=== PATIENT | female | born 1960 | race Caucasian/White ===

== ENCOUNTER 2016-07-06 01:47 | Emergency (ER) | payer OTHER ==
--- NOTE | 2016-07-06 01:57 | Emergency Department Record ---
History of Present Illness - General Chief Complaint: Fall Injury Stated Complaint: FALL Time Seen by Provider: 07/06/16 01:51 Source: Patient Mode of Arrival: EMS Limitations: No limitations - History of Present Illness Initial Comments: 56 yo female presents to ED with a CC of a fall from her wheel chair tonight. Patient reports history of TBI and has been told to be evaluated following any head injuries to be evaluated for possible new head injury following fall. Patient denies headache, neck pain, or extremity injury. MD Complaint: Fall Onset/Timin -: Minutes(s) Fall From: Wheelchair When Fall Occurred: Just prior to arrival Fall Witnessed: Yes, by living facility staff Place Fall Occurred: Home Loss of Consciousness: None Prolonged Down Time?: No Symptoms Prior to Fall: None Location: Head - [place] Coma Scale Eye Response: (4) Open spontaneously Motor Response: (6) Obeys commands Verbal Response: (5) Oriented Salome Total: 15 - Related Data Home Medications Medication Instructions Recorded Confirmed Last Taken Cetirizine HCl [Cetirizine HCl] 10 mg PO DAILY 07/06/16 07/06/16 Unknown Folic Acid [Folic Acid] 1 mg PO DAILY 07/06/16 07/06/16 Unknown Hydroxychloroquine Sulfate 200 mg PO DAILY 07/06/16 07/06/16 Unknown [Plaquenil] Hydroxyzine HCl [Hydroxyzine HCl] 25 mg PO TID PRN 07/06/16 07/06/16 Unknown Lamotrigine [Lamotrigine] 200 mg PO DAILY 07/06/16 07/06/16 Unknown Metaxalone [Metaxalone] 800 mg PO TID 07/06/16 07/06/16 Unknown Modafinil [Modafinil] 100 mg PO BID 07/06/16 07/06/16 Unknown Allergies Allergy/AdvReac Type Severity Reaction Status Date / Time morphine Allergy ITCHING Verified 02/16/16 23:59 Review of Systems Constitutional: Denies: Chills, Fever, Malaise Eyes: Denies: Eye discharge, Eye pain ENT: Denies: Congestion, Ear pain, Epistaxis Respiratory: Denies: Cough, Dyspnea Cardiovascular: Denies: Chest pain, Dyspnea on exertion Endocrine: Denies: Fatigue, Heat or cold intolerance Gastrointestinal: Denies: Abdominal pain, Nausea, Vomiting Genitourinary: Denies: Incontinence, Retention Musculoskeletal: Denies: Arthralgia, Back pain, Gout, Joint swelling Skin: Denies: Bruising, Change in color Neurological: Denies: Confusion, Headache Psychiatric: Denies: Anxiety Hematological/Lymphatic: Denies: Anemia, Blood Clots Past Medical History - SOCIAL HISTORY Smoking Status: Never smoker Drug Use: None - RESPIRATORY Hx Respiratory Disorders: No - CARDIOVASCULAR Hx Cardio Disorders: No - NEURO Hx Neuro Disorders: No - Hx Genitourinary Disorders: Yes Hx Bladder Problem: Yes Comment:: having sx on - ENDOCRINE Hx Endocrine Disorders: No - MUSCULOSKELETAL Hx Musculoskeletal Disorders: Yes Comment:: Left side paralysis - PSYCH Hx Psych Problems: No - HEMATOLOGY/ONCOLOGY Hx Hematology/Oncology Disorders: No Physical Exam - General General Appearance: Alert, Oriented x3, Cooperative, No acute distress Limitations: No limitations - Head Head exam: Atraumatic, Normocephalic, Normal inspection Head exam detail: negative: Abrasion, Contusion, Chinchilla's sign, General tenderness, Hematoma, Laceration - Eye Eye exam: Normal appearance. negative: Conjunctival injection, Periorbital swelling, Periorbital tenderness, Scleral icterus - ENT Ear exam: negative: Auricular hematoma, Auricular trauma Nasal Exam: negative: Active bleeding, Discharge, Dried blood Mouth exam: negative: Drooling, Laceration, Muffled voice, Tongue elevation - Neck Neck exam: Normal inspection. negative: Meningismus, Tenderness - Respiratory Respiratory exam: Normal lung sounds bilaterally. negative: Rales, Respiratory distress, Rhonchi, Stridor - Cardiovascular Cardiovascular Exam: Regular rate, Normal rhythm, Normal heart sounds - GI/Abdominal GI/Abdominal exam: Soft. negative: Rebound, Rigid, Tenderness - Rectal Rectal exam: Deferred - exam: Deferred - Extremities Extremities exam: Other (contractures to the LUE, LLE). negative: Calf tenderness, Pedal edema, Tenderness - Back Back exam: Denies: CVA tenderness (R), CVA tenderness (L) - Neurological Neurological exam: Alert, Oriented X3 - Psychiatric Psychiatric exam: Normal affect, Normal mood - Skin Skin exam: Normal color. negative: Abrasion Type of lesion: negative: abrasion Course - Reevaluation(s) Reevaluation #1: 07/06/16 02:44 CT Brain negative for an acute process Patient was updated on all results, and the patient appears stable for discharge at this time. Disposition Disposition: Discharge Clinical Impression: Fall from wheelchair Qualifiers: Encounter type: initial encounter Qualified Code(s): W05.0XXA - Fall from non- moving wheelchair, initial encounter Disposition: Home, Self-Care Condition: (2) Stable Instructions: Fall Prevention for Older Adults (ED) Additional Instructions: Return to ED if your symptoms worsen or if you have any concerns. Follow-up with your family doctor in 3-5 days as directed. Forms: Patient Portal Access Time of Disposition: 02:45
== END 2016-07-06 03:02 | disposition home or self-care (01) ==
LOC: ER 01:47
DX: S09.90XA Unspecified injury of head, initial encounter (principal); W05.0XXA Fall from non-moving wheelchair, initial encounter; Y92.122 Bedroom in nursing home as the place of occurrence of the external cause; Z87.820 Personal history of traumatic brain injury
CPT/HCPCS: 70450; 99283

== ENCOUNTER 2017-01-22 14:36 | Inpatient (IN) | payer MEDICARE, OTHER ==
--- NOTE | 2017-01-22 15:06 | Emergency Department Record ---
History of Present Illness - General Chief complaint: Lower Extremity Pain Stated complaint: SWELLING IN LEFT FOOT AND LEG Time Seen by Provider: 01/22/17 15:05 Source: Family Mode of Arrival: Wheelchair Limitations: No limitations - History of Present Illness Initial comments: The patient is here due to having a L foot infection with pain and swelling for a month since scraping the foot on her wheelchair. It has become progressively more painful and swollen since the onset. She did see her PCP a week ago in [place] and was sent to the ER where she staying overnight and received IV Abx' s. She then did see a corporate administrator in the ER who she states did nothing for her. The patient states she was discharged on Augmentin and has been taking it for the last week. There has been no fever, chills, trauma or falls reported. 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 MD Complaint: Extremity pain, Extremity swelling Onset/Timin -: Days(s) Location: Left, Foot, Lower Leg History of Same: No Radiation: None Severity scale (1-10): 10 Quality: Aching, Burning Consistency: Constant Improves with: Nothing Worsens with: Nothing Associated Symptoms: Denies other symptoms - Related Data Home Medications Medication Instructions Recorded Confirmed Last Taken Amoxicillin/Potassium Clav 01/22/17 01/22/17 08:00 [Augmentin 500Mg/125Mg] Aspirin [Aspir-Low] 81 mg PO DAILY 01/22/17 01/22/17 Unknown Baclofen [Lioresal Intrathecal] 01/22/17 Unknown Biotin 5 mg PO DAILY 01/22/17 01/22/17 Unknown Mirtazapine [Remeron] 15 mg PO DAILY 01/22/17 01/22/17 Unknown Allergies Allergy/AdvReac Type Severity Reaction Status Date / Time morphine Allergy ITCHING Verified 01/22/17 14:54 paper tape Allergy ITCHING Uncoded 01/22/17 14:54 Travel Screening - Travel/Exposure Within Last 30 Days Have you traveled within the last 30 days?: No - Travel/Exposure Within Last Year Have you traveled outside the [place] in the last year?: No - Additonal Travel Details Have you been exposed to anyone with a communicable illness?: No - Travel Symptoms Symptom Screening: None Review of Systems Constitutional: Denies: Chills, Fever, Malaise Eyes: Denies: Eye discharge ENT: Denies: Congestion, Throat pain Respiratory: Denies: Cough, Dyspnea Past Medical History - SOCIAL HISTORY Smoking Status: Never smoker Alcohol Use: None Drug Use: None - RESPIRATORY Hx Respiratory Disorders: No - CARDIOVASCULAR Hx Cardio Disorders: No - NEURO Hx Neuro Disorders: No - Hx Genitourinary Disorders: Yes Hx Bladder Problem: Yes - ENDOCRINE Hx Endocrine Disorders: No - MUSCULOSKELETAL Hx Musculoskeletal Disorders: Yes Comment:: Left side paralysis - PSYCH Hx Psych Problems: No - HEMATOLOGY/ONCOLOGY Hx Hematology/Oncology Disorders: No Family Medical History Any Significant Family History?: Yes Hx Alcohol Use: Father Physical Exam - General General Appearance: Alert, Cooperative, No acute distress - Head Head exam: Atraumatic, Normocephalic, Normal inspection - Eye Eye exam: Normal appearance, PERRL - Neck Neck exam: Normal inspection - Respiratory Respiratory exam: Normal lung sounds bilaterally. negative: Respiratory distress - Cardiovascular Cardiovascular Exam: Regular rate, Normal rhythm, Normal heart sounds - Extremities Extremities exam: Pedal edema, Tenderness. negative: Normal inspection (There is mild to moderate edema to the L foot and ankle with mild erythema and tenderness. There is a mild abrasion to the dorsal L foot between the 3rd and 4th toes.), Calf tenderness Course Vital Signs 01/22/17 14:46 Temperature 98.3 F Pulse Rate 97 H Respiratory 20 Rate Blood Pressure 155/78 Pulse Ox 95 - Reevaluation(s) Reevaluation #1: The patient is doing well and denies any new issues. I did explain to her that her lab tests are for the most part WNL's and her Doppler and plain xrays are WNL's. Due to the fact the L foot infection is about a month old and she has been taking Augmentin for a week I did recommend hospital admission for IV Abx' s. The patient agrees to the plan. 01/22/17 17:00 Reevaluation #2: I did also discuss the case with Jasmine HIDALGO) who is accepting patient's for Dr. De La Fuente and she does accept the patient for inpatient care. 01/22/17 17:13 Medical Decision Making - Data Complexity MDM Data: Labs Ordered and/or Reviewed, X-Ray Ordered and/or Reviewed - Lab Data Result diagrams: 01/22/17 15:41 01/22/17 15:41 - Radiology Data Radiology results: Report reviewed (L Leg Doppler: Neg L ankle and foot xrays : No acute traumatic bony changes.) Disposition Disposition: Admit Clinical Impression: Cellulitis Qualifiers: Site of cellulitis: unspecified site Qualified Code(s): L03.90 - Cellulitis, unspecified Disposition: Still a Patient at [facility] Decision to Admit: Admit from ER Decision to Admit Date: 01/22/17 Decision to Admit Time: 17:02 Accepting Physician: Leisa Time Discussed w/Accepting Physician: 17:02 Condition: (2) Stable Forms: Patient Portal Access Time of Disposition: 17:02 Quality - Quality Measures Quality Measures: N/A - Blood Pressure Screening View Details: Yes Does Patient Have Any of the Following: No Blood Pressure Classification: Hypertensive Reading Systolic Measurement: 155 Diastolic Measurement: 78 Screening for High Blood Pressure: < Pre-Hypertensive BP, F/U Documented > [ [id number]] Pre-Hypertensive Follow-up Interventions: Referral to alternative/primary care provider.
[2017-01-22 15:53] LABS: BASO % 0.1 % (0-6); EOS % 1.1 % (0-6); HEMATOCRIT 42.2 % (35.0-47.0); HEMOGLOBIN 13.1 gm/dl (11.6-16.0); LYMPH % 17.4 % (16-45); MEAN CELL VOLUME 97.7 fl (81-97); MEAN CORPUSCULAR HEMOGLOBIN 30.3 pg (27-33); MEAN PLATELET VOLUME 10.1 fl (7.4-10.4); MONO % 4.4 % (0-9); PLATELET COUNT 257 K/uL (130-400); RED BLOOD COUNT 4.32 M/uL (3.80-5.40); RED CELL DISTRIBUTION WIDTH 14.7 % (11.5-14.5); WHITE BLOOD COUNT W/O DIFF 10.8 K/uL (4.2-12.2)
[2017-01-22] MEDS ORDERED: CLINDAMYCIN 600MG/50ML PREMIX 600 MG/50 ML BAG IVPB ONE (16:01)
[2017-01-22 16:02] LABS: BLOOD UREA NITROGEN 10 mg/dL (6-20); CREATININE 0.6 mg/dL (0.5-0.9); EST GLOMERULAR FILTRATION RATE > 60 mL/min; TOTAL PROTEIN 8.7 g/dL (6.6-8.7)
[2017-01-22 16:05] LABS: GLUCOSE,RANDOM 115 mg/dL (74-109)
[2017-01-22 16:07] LABS: ALBUMIN 3.8 g/dL (4.0-5.0); ALKALINE PHOSPHATASE 88 U/L (35-104); ALT/SGPT 15 U/L (<33); AST/SGOT 20 U/L (10.0-35.0)
[2017-01-22 16:08] LABS: C-REACTIVE PROTEIN 2.52 mg/dL (<0.5)
[2017-01-22 16:14] LABS: BILIRUBIN,DIRECT < 0.2 mg/dL (0-0.3)
[2017-01-22] MEDS ORDERED: ACETAMINOPHEN 325 MG TAB PO ONE (16:30)
[2017-01-22] MEDS ORDERED: HYDROXYZINE PAMOATE 25 MG CAPSULE PO PRN (18:22)
[2017-01-22] MEDS ORDERED: ACETAMINOPHEN 325 MG TAB PO PRN (18:22)
[2017-01-22] MEDS ORDERED: CLINDAMYCIN 600MG/50ML PREMIX 600 MG/50 ML BAG IVPB SCH (18:22)
[2017-01-22] MEDS: HYDROCODONE/APAP 5/325MG TABLET PO PRN ×2 (18:34→22:24)
[2017-01-22] MEDS ORDERED: MODAFINIL 100 MG PO SCH (22:00)
[2017-01-22] MEDS: CLINDAMYCIN 600MG/50ML PREMIX 600 MG/50 ML BAG IVPB SCH (22:30)
[2017-01-22] MEDS: CYCLOBENZAPRINE 10MG TABLET PO SCH (23:14)
[2017-01-23] MEDS: CLINDAMYCIN 600MG/50ML PREMIX 600 MG/50 ML BAG IVPB SCH ×3 (06:09→21:05)
--- NOTE | 2017-01-23 08:51 | History & Physical ---
History of Present Illness - Date of Service Date of Service for History & Physical: 01/23/17 - History of Present Illness Admitting Diagnosis: 1. Left Foot and Leg Cellulitis History of Present Illness: 56yo female with CC of redness and swelling of the left foot. She has history of TBI with left sided paralysis. Patient has been having pain and swelling for a month since scraping the foot on her wheelchair. It has become progressively more painful and swollen since the onset. She did see her PCP a week ago in [place] and was sent to the ER where she staying overnight and received IV Abx's. She then did see a table hand in the ER who she states did nothing for her. The patient states she was discharged on Augmentin and has been taking it for the last week. There has been no fever, chills, trauma or falls reported. While in the ED, patient underwent left foot and ankle XR showing soft tissue sweling. Venous doppler negative for acute process. Her WBC count was within normal. CRP was elevated at 2.52. Due to failing augmentin as outpatient, she was started on IV clindamycin and admitted for cellulitis. 01/23/17- Patient states her foot feels about the same as yesterday. She denies worsening pain or swelling. She denies any fevers, chills, nausea. She denies previous history of the same. She denies history of MRSA. pcp: Dr. Dowd Travel Screening - Travel/Exposure Within Last 30 Days Have you traveled within the last 30 days?: No - Travel/Exposure Within Last Year Have you traveled outside the [place] in the last year?: No - Additonal Travel Details Have you been exposed to anyone with a communicable illness?: No - Travel Symptoms Symptom Screening: None Review of Systems Constitutional: Denies: Chills, Fever, Malaise Eyes: Denies: Eye discharge ENT: Denies: Congestion, Throat pain Respiratory: Denies: Cough, Dyspnea Past Medical History - SOCIAL HISTORY Smoking Status: Never smoker - RESPIRATORY Hx Respiratory Disorders: No - CARDIOVASCULAR Hx Cardio Disorders: No - NEURO Hx Neuro Disorders: No Comment:: traumatic brain injury - Hx Genitourinary Disorders: Yes Hx Bladder Problem: Yes - ENDOCRINE Hx Endocrine Disorders: No Hx Diabetes: No Hx Thyroid Disease: No - MUSCULOSKELETAL Hx Musculoskeletal Disorders: Yes Comment:: Left side paralysis - PSYCH Hx Psych Problems: No - HEMATOLOGY/ONCOLOGY Hx Hematology/Oncology Disorders: No Family Medical History Any Significant Family History?: Yes Hx Alcohol Use: Father H&P Meds/Allergies - Allergies Allergies: Allergies Allergy/AdvReac Type Severity Reaction Status Date / Time morphine Allergy ITCHING Verified 01/22/17 14:54 paper tape Allergy ITCHING Uncoded 01/22/17 14:54 - Home Medications Home Medications Medication Instructions Recorded Confirmed Last Taken Amoxicillin/Potassium Clav 01/22/17 01/22/17 08:00 [Augmentin 500Mg/125Mg] Aspirin [Aspir-Low] 81 mg PO DAILY 01/22/17 01/22/17 Unknown Baclofen [Lioresal Intrathecal] 01/22/17 Unknown Biotin 5 mg PO DAILY 01/22/17 01/22/17 Unknown Mirtazapine [Remeron] 15 mg PO DAILY 01/22/17 01/22/17 Unknown - Active Medications Active Medications: Current Medications Acetaminophen (Tylenol 325mg) 650 mg PO Q6H PRN PRN Reason: PAIN/TEMP Hydrocodone Bitart/Acetaminophen ([place] 5mg/325mg) 1 each PO Q4H PRN PRN Reason: Analgesia Last Admin: 01/22/17 22:24 Dose: 1 each Aspirin (Ecotrin (Ec)) 81 mg PO DAILY [facility] Cyclobenzaprine HCl (Flexeril) 10 mg PO TID [facility] Last Admin: 01/22/17 23:14 Dose: 10 mg Folic Acid () 1 mg PO DAILY [facility] Hydroxychloroquine Sulfate (Plaquenil) 200 mg PO DAILY [facility] Hydroxyzine Pamoate (Vistaril) 25 mg PO TID PRN PRN Reason: ITCHING Clindamycin Phosphate (Cleocin 600 On-I2f-Metxoh) 600 mg in 50 mls @ 100 mls/ hr IVPB Q8HR [facility] Last Infusion: 01/23/17 06:49 Dose: Infused Lamotrigine (Lamictal) 200 mg PO DAILY [facility] Loratadine (Claritin) 10 mg PO DAILY [facility] Mirtazapine (Remeron) 15 mg PO DAILY [facility] Non-Formulary Medication (Modafinil [Modafinil]) 100 mg PO BID [facility] Physical Exam - Vital Signs Vital Signs: Vital Signs - Last 24 Hrs Temp Pulse Pulse Resp BP BP Pulse Ox 01/23/17 08:44 98.5 F 70 18 118/58 93 L 01/22/17 22:45 97.5 F L 77 18 147/91 97 01/22/17 21:00 18 01/22/17 19:24 20 01/22/17 18:09 98.2 F 98 H 20 150/74 96 01/22/17 18:05 98.4 F 74 18 158/94 98 - General General Appearance: Alert, Oriented x3, Cooperative, No acute distress Limitations: No limitations - Head Head exam: Atraumatic, Normocephalic, Normal inspection - Eye Eye exam: Normal appearance, PERRL - Neck Neck exam: Normal inspection - Respiratory Respiratory exam: Normal lung sounds bilaterally. negative: Respiratory distress - Cardiovascular Cardiovascular Exam: Regular rate, Normal rhythm, Normal heart sounds - GI/Abdominal GI/Abdominal exam: Soft, Normal bowel sounds. negative: Tenderness - Extremities Extremities exam: Pedal edema, Tenderness. negative: Normal inspection (There is mild to moderate edema to the L foot and ankle with mild erythema and tenderness. There is a mild abrasion to the dorsal L foot between the 3rd and 4th toes.), Calf tenderness Results - Labs Result Diagrams: 01/24/17 06:00 01/23/17 09:23 VTE H&P Assessment - Risk for VTE Risk for VTE: Yes Risk Level: High Risk Assessment Date: 01/23/17 Risk Assessment Time: 10:00 VTE Orders Placed or Will Be Placed: Yes Plan - Inpatient Certification Inpatient Certification: Admit to inpatient care: Based on my medical assessment, after consideration of patient's risk factors (age, co-morbidities and patient presenting symptoms and acuity), I expect that this patient will remain in the hospital greater than or equal to two midnights and that the services needed warrant inpatient care because: Patient Risk Factors: [age, cellulitis, failed outpatient treatment, paralysis of the left side of body making it difficult for patient to self monitor] Estimated length of stay: [48-72H] The patient may reasonably be expected to be discharged or transferred to a hospital within 96 hours after admission to [facility]. Services needed: [IV antibiotics ] Post hospital care (if known): [] I certify that my determination is in accordance with my understanding of Medicare requirements for reasonable and necessary inpatient services. 01/24/17 07:57 - Detailed Diagnosis and Plan (1) Cellulitis Current Visit: Yes Status: Acute Qualifiers: Site of cellulitis: unspecified site Qualified Code(s): L03.90 - Cellulitis , unspecified Base Code: L03.90 - CELLULITIS, UNSPECIFIED Comment: 01/23/17- XR of left foot and ankle showed diffuse soft tissue swelling. Venous doppler negative for DVT. WBC count wnl and patient remains afebrile. CRP elevated at 2.5. -continue IV clindamycin 600mg q8H -vitals q8H -repeat labs qam (2) Full code status Current Visit: Yes Status: Acute Base Code: Z78.9 - OTHER SPECIFIED HEALTH STATUS Comment: 01/23/17- patient is full code (3) DVT prophylaxis Current Visit: Yes Status: Acute Base Code: [id number] - Comment: 01/23/17- lovenox 40mg sq daily
[2017-01-23 09:39] LABS: BASO % 0.8 % (0-6); EOS % 3.1 % (0-6); GRAN % 46.6 % (47-80); HEMATOCRIT 38.9 % (35.0-47.0); HEMOGLOBIN 12.1 gm/dl (11.6-16.0); LYMPH % 40.4 % (16-45); MEAN CELL VOLUME 99.5 fl (81-97); MEAN CORPUSCULAR HEMOGLOBIN 30.9 pg (27-33); MEAN CORPUSCULAR HGB CONC 31.1 g/dl (32-36); MEAN PLATELET VOLUME 10.1 fl (7.4-10.4); MONO % 9.1 % (0-9); PLATELET COUNT 225 K/uL (130-400); RED BLOOD COUNT 3.91 M/uL (3.80-5.40); RED CELL DISTRIBUTION WIDTH 14.9 % (11.5-14.5); WHITE BLOOD COUNT W/O DIFF 6.1 K/uL (4.2-12.2)
[2017-01-23 09:49] LABS: BLOOD UREA NITROGEN 10 mg/dL (6-20); CREATININE 0.7 mg/dL (0.5-0.9); EST GLOMERULAR FILTRATION RATE > 60 mL/min
[2017-01-23 09:52] LABS: GLUCOSE,RANDOM 95 mg/dL (74-109)
[2017-01-23] MEDS: MIRTAZAPINE 15 MG TABLET PO SCH (10:00)
[2017-01-23] MEDS: ASPIRIN 81 MG TABEC PO SCH (10:00)
[2017-01-23] MEDS: LAMOTRIGINE 100 MG TABLET PO SCH (10:00)
[2017-01-23] MEDS: CYCLOBENZAPRINE 10MG TABLET PO SCH ×3 (10:00→21:05)
[2017-01-23] MEDS: LORATADINE 10 MG TABLET PO SCH (10:00)
[2017-01-23] MEDS: HYDROXYCHLOROQUINE SULFATE 200 MG TABLET PO SCH (10:00)
[2017-01-23] MEDS: FOLIC ACID 1 MG TABLET PO SCH (10:00)
--- NOTE | 2017-01-23 10:58 | RADIOLOGY REPORT ---
EXAM: ANKLE LEFT 3 VIEWS HISTORY: PAIN AND SWELLING LEFT ANKLE. TECHNIQUE: Three views left ankle. COMPARISON: Left ankle series 09/02/09. FINDINGS: Some diffuse soft tissue swelling is again seen about the left ankle , somewhat similar to that noted back on 09/02/09. No definite acute fracture or dislocation of the ankle evident. The bones diffusely appear somewhat osteopenic raising the possibility of osteoporosis and clinical correlation is suggested. IMPRESSION: SOME DIFFUSE SOFT TISSUE SWELLING. NO FRACTURE IDENTIFIED. SOME OSTEOPENIA DOES APPEAR TO BE PRESENT. JOB NUMBER: [id number] [facility]
--- NOTE | 2017-01-23 11:03 | RADIOLOGY REPORT ---
EXAM: FOOT, LEFT 3 VIEWS HISTORY: PAIN AND SWELLING LEFT FOOT. TECHNIQUE: Three views left foot. COMPARISON: Left foot series 05/03/09. FINDINGS: Post-op changes again seen involving the IP joint of the great toe as before with an orthopedic screw fusing the IP joint. Bones diffusely appear somewhat osteopenic suggesting osteoporosis. There may be an old pin tract in the distal shaft of the first metatarsal and clinical correlation is suggested. Diffuse soft tissue swelling is seen involving the foot. No definite fracture or dislocation of the left foot identified. IMPRESSION: 1. DIFFUSE SOFT TISSUE SWELLING INVOLVING THE LEFT FOOT. 2. POST-OP CHANGES AT THE IP JOINT OF THE GREAT TOE AND PROBABLY AN OLD PIN TRACT IN THE DISTAL SHAFT OF THE FIRST METATARSAL. 3. NO DEFINITE ACUTE FRACTURE OF THE LEFT FOOT IDENTIFIED. JOB [facility]BER: [id number] [facility]
--- NOTE | 2017-01-23 11:09 | US VENOUS DOPPLER REPORT ---
EXAM: ULTRASOUND VENOUS DOPPLER LOWER EXT LT HISTORY: PAIN AND SWELLING LEFT FOOT AND ANKLE. POSSIBLE DVT. TECHNIQUE: An emergency venous Doppler ultrasound of the left lower extremity was performed with the venous anatomy evaluated from the inguinal region down through the thigh and calf to the ankle. Color-flow and spectral analysis was utilized throughout, and were supplemented by compression and flow augmentation maneuvers in the thigh and popliteal region. COMPARISON: No prior venous Doppler ultrasound with which to compare. FINDINGS: The venous Doppler ultrasound of the left lower extremity is negative. No venous thrombus identified throughout the visualized venous anatomy of the left lower extremity. Compressibility and flow augmentation evident in the venous anatomy of the thigh and popliteal region as well. IMPRESSION: NEGATIVE VENOUS DOPPLER ULTRASOUND OF THE LEFT LOWER EXTREMITY WITH NO DVT EVIDENT. JOB NUMBER: [id number] [facility]
[2017-01-23] MEDS: HYDROCODONE/APAP 5/325MG TABLET PO PRN ×2 (13:22→21:05)
[2017-01-23] MEDS ORDERED: ACETAMINOPHEN 500 MG TABLET PO PRN ×2 (13:53→13:54)
[2017-01-24] MEDS: HYDROCODONE/APAP 5/325MG TABLET PO PRN ×3 (01:07→22:02)
[2017-01-24] MEDS: CLINDAMYCIN 600MG/50ML PREMIX 600 MG/50 ML BAG IVPB SCH ×3 (06:16→22:02)
[2017-01-24 06:25] LABS: BASO % 0.5 % (0-6); EOS % 2.6 % (0-6); GRAN % 57.1 % (47-80); HEMATOCRIT 39.2 % (35.0-47.0); HEMOGLOBIN 11.8 gm/dl (11.6-16.0); LYMPH % 31.9 % (16-45); MEAN CELL VOLUME 98.7 fl (81-97); MEAN CORPUSCULAR HEMOGLOBIN 29.7 pg (27-33); MEAN CORPUSCULAR HGB CONC 30.1 g/dl (32-36); MEAN PLATELET VOLUME 9.9 fl (7.4-10.4); MONO % 7.9 % (0-9); PLATELET COUNT 268 K/uL (130-400); RED BLOOD COUNT 3.97 M/uL (3.80-5.40); RED CELL DISTRIBUTION WIDTH 14.9 % (11.5-14.5); WHITE BLOOD COUNT W/O DIFF 7.6 K/uL (4.2-12.2)
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
[2017-01-24] MEDS: LAMOTRIGINE 100 MG TABLET PO SCH (10:55)
[2017-01-24] MEDS: LORATADINE 10 MG TABLET PO SCH (10:58)
[2017-01-24] MEDS: ASPIRIN 81 MG TABEC PO SCH (10:58)
[2017-01-24] MEDS: CYCLOBENZAPRINE 10MG TABLET PO SCH ×3 (10:59→22:02)
[2017-01-24] MEDS: HYDROXYCHLOROQUINE SULFATE 200 MG TABLET PO SCH (10:59)
[2017-01-24] MEDS: MIRTAZAPINE 15 MG TABLET PO SCH (10:59)
[2017-01-24] MEDS: FOLIC ACID 1 MG TABLET PO SCH (10:59)
[2017-01-24] MEDS: ENOXAPARIN 40 MG/0.4 ML SYR SQ SCH (15:38)
--- NOTE | 2017-01-24 20:30 | Physician Progress Note ---
Subjective - Date Date of Physician Progress Note: 01/24/17 - Subjective Subjective Comment: 01/24/17- Patient states her foot feels a little better than yesterday. she says she can't really see her foot so can't say if she thinks the redness is improving. She has only taken one dose of pain medication because otherwise her pain has been controlled. she denies fevers, chills. she currently lives at home with [facility] home care. She says one of her caregivers brought her to the ED on Wednesday. Objective - Vital Signs Vital Signs: Vital Signs - Last 24 Hrs Temp Pulse Resp BP Pulse Ox 01/24/17 17:52 98.0 F 76 18 160/81 97 01/24/17 10:00 97.7 F 68 18 141/72 92 L 01/23/17 21:00 18 - General General Appearance: Alert, Oriented x3, Cooperative, No acute distress Limitations: No limitations - Head Head exam: Atraumatic, Normocephalic, Normal inspection - Eye Eye exam: Normal appearance, PERRL - Neck Neck exam: Normal inspection - Respiratory Respiratory exam: Normal lung sounds bilaterally. negative: Respiratory distress - Cardiovascular Cardiovascular Exam: Regular rate, Normal rhythm, Normal heart sounds - GI/Abdominal GI/Abdominal exam: Soft, Normal bowel sounds. negative: Tenderness - Extremities Extremities exam: Pedal edema, Tenderness. negative: Normal inspection (There is mild to moderate edema to the L foot and ankle with mild erythema and tenderness. There is a mild abrasion to the dorsal L foot between the 3rd and 4th toes.), Calf tenderness - Neurological Neurological exam: Oriented X3 - Psychiatric Psychiatric exam: Normal affect, Normal mood Assessment and Plan - Assessment and Plan (1) Cellulitis Current Visit: Yes Status: Acute Qualifiers: Site of cellulitis: unspecified site Qualified Code(s): L03.90 - Cellulitis , unspecified Base Code: L03.90 - CELLULITIS, UNSPECIFIED Comment: 01/24/17- XR of left foot and ankle showed diffuse soft tissue swelling. Venous doppler negative for DVT. WBC count wnl and patient remains afebrile. CRP trending down from 2.5 to 1.66 today. -continue IV clindamycin 600mg q8H -vitals q8H -repeat labs qam -will likely discharge tomorrow. I did call her home care agency, [facility], today to discuss that she will need a ride home tomorrow so they are aware. (2) Full code status Current Visit: Yes Status: Acute Base Code: Z78.9 - OTHER SPECIFIED HEALTH STATUS Comment: 01/24/17- patient is full code (3) DVT prophylaxis Current Visit: Yes Status: Acute Base Code: [id number] - Comment: 01/24/17- lovenox 40mg sq daily Results - Labs Result Diagrams: 01/24/17 06:00 01/23/17 09:23 Labs Last 24 Hours: Laboratory Results - last 24 hr 01/24/17 01/24/17 06:00 06:00 WBC 7.6 RBC 3.97 Hgb 11.8 Hct 39.2 MCV 98.7 H MCH 29.7 MCHC 30.1 L RDW 14.9 H Plt Count 268 MPV 9.9 Gran % 57.1 Lymphocytes % 31.9 Monocytes % 7.9 Eosinophils % 2.6 Basophils % 0.5 C-Reactive Protein 1.66 H DVT/PE Assessment - Risk for VTE Risk for VTE: No Risk Level: High Risk Assessment Date: 01/23/17 Risk Assessment Time: 10:00 VTE Orders Placed or Will Be Placed: Yes - Active Medicaitons Current Medications: Current Medications Acetaminophen (Tylenol 500mg Tab) 500 mg PO Q6H PRN PRN Reason: Pain - Mild (1-4) Acetaminophen (Tylenol 500mg Tab) 1,000 mg PO Q6H PRN PRN Reason: Pain - Moderate (5-7) Hydrocodone Bitart/Acetaminophen (Phelps 5mg/325mg) 1 each PO Q4H PRN PRN Reason: Analgesia Last Admin: 01/24/17 15:39 Dose: 1 each Aspirin (Ecotrin (Ec)) 81 mg PO DAILY [facility] Last Admin: 01/24/17 10:58 Dose: 81 mg Cyclobenzaprine HCl (Flexeril) 10 mg PO TID [facility] Last Admin: 01/24/17 15:39 Dose: 10 mg Enoxaparin Sodium (Lovenox) 40 mg SQ DAILY [facility] Last Admin: 01/24/17 15:38 Dose: 40 mg Folic Acid () 1 mg PO DAILY [facility] Last Admin: 01/24/17 10:59 Dose: 1 mg Hydroxychloroquine Sulfate (Plaquenil) 200 mg PO DAILY [facility] Last Admin: 01/24/17 10:59 Dose: 200 mg Hydroxyzine Pamoate (Vistaril) 25 mg PO TID PRN PRN Reason: ITCHING Clindamycin Phosphate (Cleocin 600 [id number]) 600 mg in 50 mls @ 100 mls/ hr IVPB Q8HR [facility] Last Infusion: 01/24/17 19:49 Dose: Infused Lamotrigine (Lamictal) 200 mg PO DAILY [facility] Last Admin: 01/24/17 10:55 Dose: 200 mg Loratadine (Claritin) 10 mg PO DAILY [facility] Last Admin: 01/24/17 10:58 Dose: 10 mg Mirtazapine (Remeron) 15 mg PO DAILY [facility] Last Admin: 01/24/17 10:59 Dose: 15 mg Non-Formulary Medication (Modafinil [Modafinil]) 100 mg PO BID [facility] AMI Plan - Labs Result Diagrams: 01/24/17 06:00 01/23/17 09:23
[2017-01-25] MEDS: HYDROCODONE/APAP 5/325MG TABLET PO PRN (02:01)
[2017-01-25] MEDS: CLINDAMYCIN 600MG/50ML PREMIX 600 MG/50 ML BAG IVPB SCH ×2 (06:16→13:49)
[2017-01-25] MEDS: FOLIC ACID 1 MG TABLET PO SCH (09:43)
[2017-01-25] MEDS: LAMOTRIGINE 100 MG TABLET PO SCH (09:43)
[2017-01-25] MEDS: HYDROXYCHLOROQUINE SULFATE 200 MG TABLET PO SCH (09:43)
[2017-01-25] MEDS: LORATADINE 10 MG TABLET PO SCH (09:43)
[2017-01-25] MEDS: ASPIRIN 81 MG TABEC PO SCH (09:43)
[2017-01-25] MEDS: MIRTAZAPINE 15 MG TABLET PO SCH (09:44)
[2017-01-25] MEDS: CYCLOBENZAPRINE 10MG TABLET PO SCH (09:44)
[2017-01-25] MEDS: ENOXAPARIN 40 MG/0.4 ML SYR SQ SCH (10:24)
== END 2017-01-25 15:13 | disposition home health service (06) | DRG 603 ==
LOC: ER 14:36 → MEDSURG 17:41
PROVIDERS: ADMIT Internal Medicine; ATTEND Internal Medicine
DX: L03.116 Cellulitis of left lower limb (principal); G81.90 Hemiplegia, unspecified affecting unspecified side; Z87.820 Personal history of traumatic brain injury
CPT/HCPCS: 80048; 80076; 85025; 86140; 96365; 99223; 99233; 99239; 99285; J1650

== ENCOUNTER 2019-02-06 17:19 | Emergency (ER) | payer MEDICARE ==
[2019-02-06] MEDS ORDERED: 0.9 % SODIUM CHLORIDE 1,000 ML BAG IV ONE (17:53)
[2019-02-06] MEDS ORDERED: ONDANSETRON HCL IV 4 MG/2 ML VIAL IVP ONE (17:54)
[2019-02-06] MEDS ORDERED: HYDROMORPHONE HCL 2 MG/ML VIAL IVP ONE ×2 (17:54→18:43)
[2019-02-06 18:23] LABS: ABSOLUTE NEUTROPHIL COUNT 5.07; BASO % 0.3 % (0-6); EOS % 1.2 % (0-6); GRAN % 67.8 % (47-80); HEMATOCRIT 43.8 % (35.0-47.0); HEMOGLOBIN 13.3 gm/dl (11.6-16.0); LYMPH % 24.6 % (16-45); MEAN CELL VOLUME 97.3 fl (81-97); MEAN CORPUSCULAR HEMOGLOBIN 29.6 pg (27-33); MEAN CORPUSCULAR HGB CONC 30.4 g/dl (32-36); MONO % 6.1 % (0-9); PLATELET COUNT 307 K/uL (130-400); WHITE BLOOD COUNT W/O DIFF 7.5 K/uL (4.2-12.2)
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
[2019-02-06] MEDS ORDERED: LORAZEPAM 2 MG/ML VIAL IV ONE ×2 (18:30→18:43)
[2019-02-06 18:35] LABS: BLOOD UREA NITROGEN 10 mg/dL (6-20); CREATININE 0.5 mg/dL (0.5-0.9); EST GLOMERULAR FILTRATION RATE > 60 mL/min
[2019-02-06 18:38] LABS: GLUCOSE,RANDOM 98 mg/dL (74-109)
[2019-02-06 18:41] LABS: TOTAL PROTEIN 8.5 g/dL (6.6-8.7)
[2019-02-06 18:46] LABS: ALBUMIN 3.8 g/dL (4.0-5.0); ALKALINE PHOSPHATASE 89 U/L (35-104); ALT/SGPT 14 U/L (<33); AST/SGOT 15 U/L (10.0-35.0); C-REACTIVE PROTEIN 1.18 mg/dL (<0.5)
[2019-02-06 18:47] LABS: BILIRUBIN,DIRECT < 0.2 mg/dL (0-0.3)
--- NOTE | 2019-02-06 19:22 | RADIOLOGY REPORT ---
EXAMINATION: Left Femur, Two Views EXAM DATE: 02/06/2019 7:06 PM TECHNIQUE: AP and lateral INDICATION: pain COMPARISON: None ENCOUNTER: Initial FINDINGS: Joint space narrowing superior lateral is seen at the left hip joint. There is bandlike area of scler osis distal femur epicondyles region without old studies for comparison. No displaced fractures ident ified. A stress injury is not excluded. IMPRESSION: As above. If patient is unable to bear weight advanced imaging is recommended if clinically indicated. Dictated by: Harriett Block MD on 02/06/2019 7:15 PM. .
== END 2019-02-06 19:43 | disposition short-term general hospital (02) ==
LOC: ER 17:19
DX: M79.652 Pain in left thigh (principal); R60.0 Localized edema; M25.552 Pain in left hip
CPT/HCPCS: 80048; 80076; 85025; 86140; 96374; 96375; 96376; 99285; J2405; J7030